=== PATIENT | female | born 1975 | race African-American/Black ===

== ENCOUNTER 2020-10-26 08:31 | Emergency (ER) | payer BC, SELFPAY ==
[2020-10-26 08:42] VITALS: BP 122/70; PULSE 76; RESP 16; TEMP 36.2; O2SAT 99
--- NOTE | 2020-10-26 08:45 | ED.DENTAL ---
HPI - Dental/Oral General Chief complaint: Dental/Oral Stated complaint: gums swelling Time Seen by Provider: 10/26/20 08:50 Source: patient, RN notes reviewed and old records reviewed Mode of arrival: ambulatory Limitations: no limitations History of Present Illness HPI Narrative: 45-year-old female who presents to [facility] with complaints of swelling of gums most posterior lower left area next to last molar with discomfort to area and some mild swelling to her face. Patient states that she noticed the swelling to the gum yesterday when she was flossing and today discomfort has increased with the left side of her face feeling swollen also. Patient reports that she has a dentist to follow up with. She denies any known fevers chills or sweats, denies any difficulty with her swallowing or breathing. Patient states she felt she needed to get antibiotic before she sees her dentist. Onset (ago): day(s) (1) Duration: constant Severity: moderate Severity scale (1-10): 6 Relieving factors: nothing Exacerbating factors: nothing Associated symptoms: gum swelling Treatment prior to arrival: none Related Data Home Medications Medication Instructions Recorded Confirmed phentermine 37.5 mg PO DAILY 10/26/20 10/26/20 Allergies Allergy/AdvReac Type Severity Reaction Status Date / Time No Known Allergies Allergy Verified 10/26/20 08:48 Review of Systems Review of Systems: Narrative: CONSTITUTIONAL: Denies fever, chills, or sweats. EYES: Denies visual changes, redness, or discharge. ENT: Denies rhinorrhea, congestion, sore throat, or otalgia. left lower gum swelling posterior to last molar with some facial swelling CARDIOVASCULAR: Denies chest pain, palpitations, or edema. RESPIRATORY: Denies cough or dyspnea. GASTROINTESTINAL: Denies abdominal pain, nausea, vomiting, or diarrhea. GENITOURINARY: Denies dysuria or hematuria. SKIN: Denies rash or itching. MUSCULOSKELETAL: Denies back pain, joint pain, or myalgia. NEUROLOGIC: Denies headache, numbness, or weakness. PSYCHIATRIC: Denies anxiety or depression. All systems reviewed & are unremarkable except as noted in HPI and below PMFSH Past Medical History Medical History (Updated 10/27/20 @ 00:00 by Sky Frias) Seasonal allergies Surgical History Surgical History (Updated 10/26/20 @ 10:02 by Jayda Ulloa NP) History of tubal ligation Family History Family History (Updated 10/26/20 @ 10:02 by Jayda Ulloa NP) Mother Hypertension Social History Social History (Updated 10/26/20 @ 10:03 by Jayda Ulloa NP) Smoking status: Never smoker Alcohol intake: former Alcohol use details: social Substance use: never Living arrangements: with family Gender identity (if verbalized by the patient): Female Comments At time of signature, agree with nursing past medical, surgical, social and family history. There is no relevant family history pertinent to the presenting complaint Exam Narrative: Exam Narrative: GENERAL: Well-appearing, well-nourished, and in no acute distress. HEAD: Normocephalic, atraumatic. EYES: PERRLA and EOMI. ENT: Nares clear, no rhinorrhea or epistaxis. Mucous membranes moist. TM's normal with good light reflex, no canal drainage, throat pink with no lesions or exudates, no tonsil enlargement, swelling redness to left lower gum most posterior area next to last molar on left,no drainage noted, mild facial swelling noted with tenderness.No Aj angina or any difficulty with swallowing. NECK: Supple.no lymphadenopathy CHEST: Clear to auscultation. No respiratory distress.SAO2 99% on room air HEART: Regular rate and rhythm. No murmur heard. Normal peripheral pulses. ABDOMEN: Soft, nontender, nondistended, normal active bowel sounds. EXTREMITIES: Normal range of motion. No edema. SKIN: Warm, dry, no rash. NEURO: No focal deficits. Alert and oriented x3. Course Vital Signs Vital signs: Vital Signs Temperature 36
== END 2020-10-26 09:15 | disposition home or self-care (01) ==
PROVIDERS: Emergency Provider Registered Nurse; PCP Family Medicine
DX: K05.319 Chronic periodontitis, localized, unspecified severity (principal)
CPT/HCPCS: 99203; G0463

== ENCOUNTER 2023-05-04 09:05 | Emergency (ER) | payer BC, SELFPAY ==
[2023-05-04 09:19] VITALS: BP 137/94; PULSE 94; RESP 16; TEMP 37.1; O2SAT 100
--- NOTE | 2023-05-04 09:22 | ED.URI ---
HPI - URI/Sore Throat General Chief Complaint: Upper Respiratory Infection Stated Complaint: Sinus Time Seen by Provider: 05/04/23 09:25 Source: patient Mode of arrival: ambulatory Limitations: no limitations History of Present Illness HPI Narrative: Jennifer is a 48-year-old female patient presenting to clinic today with complaints of her sinuses draining. She reports that this has been going on for several weeks however this episode started on Wednesday. She reports her sinuses drain most when she is eating something hot or spicy. States that she is coughing up some phlegm in the shower in the morning and it is yellow. Is feeling more congested. No known fever or chills. MD elicited complaint: nasal congestion Related Data Home Medications Medication Instructions Recorded Confirmed phentermine 37.5 mg capsule 37.5 mg PO DAILY 10/26/20 05/04/23 Allergies Allergy/AdvReac Type Severity Reaction Status Date / Time No Known Allergies Allergy Verified 05/04/23 09:23 Review of Systems Review of Systems: Pertinent positives per HPI. Patient denies any fever, chills, rash, headache, visual changes, dizziness, cough, shortness of breath, chest pain, palpitations, nausea, vomiting, diarrhea, constipation, abdominal pain, or any urinary issues. [facility] Past Medical History Medical History (Updated 05/04/23 @ 09:33 by Mat Daniel APRN) Seasonal allergies Surgical History Surgical History History of tubal ligation Family History Family History Mother Hypertension Social History Social History Smoking status: Never smoker Alcohol intake: former Alcohol use details: social Substance use: never Living arrangements: with family Gender identity (if verbalized by the patient): Female Comments At the time of my signature, I reviewed and agree with the nursing past medical, surgical, social, and family history. There is no relevant family history pertinent to the patient complaint. Exam Narrative: General: Well-developed, well nourished, in no apparent distress Head: Normocephalic, atraumatic Eyes: Pupils equally round and reactive to light bilaterally, EOM intact, sclera and conjunctive clear, no discharge, lids normal Ears: TMs intact and clear, ear canals clear, no drainage, grossly hearing normal. Nose: Nares patent, clear nasal discharge, no inflammation, no sinus tenderness. Mouth: Oral pharynx without lesions or masses, good dentition, MMM. Neck: Supple, trachea midline, no enlargement of anterior or posterior cervical nodes, no thyroid masses or goiter palpable. Cardio: Regular rate and rhythm, s1 and s2 normal, no murmur appreciated. Resp: Clear to auscultation bilaterally, no rhonchi, rales, wheezing or rubs Course Course Emergency Course: Portions of this record may have been created with voice recognition software. Level of Care: Express Care Visit Vital Signs Vital signs: Vital Signs Temperature 37.1 C 05/04/23 09:19 Pulse Rate 94 05/04/23 09:19 Respiratory Rate 16 05/04/23 09:19 Blood Pressure 137/94 H 05/04/23 09:19 Pulse Oximetry 100 05/04/23 09:19 Oxygen Delivery Room Air 05/04/23 09:19 Temperature 37.1 C 05/04/23 09:19 Pulse Rate 94 05/04/23 09:19 Respiratory Rate 16 05/04/23 09:19 Blood Pressure 137/94 H 05/04/23 09:19 Pulse Oximetry 100 05/04/23 09:19 Oxygen Delivery Room Air 05/04/23 09:19 Vital signs reviewed MDM - URI/Sore Throat MDM Narrative Medical decision making narrative: At the time of visit patient is resting comfortably on the exam table. Patient appears to be nontoxic. I suspect the patient has a URI as the symptoms just started Wednesday with sinus congestion. Is having some yellow phlegm. Supportive measures were discu
== END 2023-05-04 09:37 | disposition home or self-care (01) ==
PROVIDERS: Emergency Provider Nurse Practitioner Family; PCP Family Medicine
DX: J06.9 Acute upper respiratory infection, unspecified (principal)
CPT/HCPCS: 99213; G0463